=== PATIENT | female | born 1985 | race African-American/Black ===

== ENCOUNTER 2017-07-23 20:32 | Day surgery (SDC) | payer OTHER ==
--- NOTE | 2017-07-23 20:48 | PDOC.LDHP ---
Labor and Delivery H&P Chief complaint: abdominal pain HPI: 31 y/o at 32w4d, patient of Dr. Medrano, presents via EMS with abdominal pain. Describes the pain as sharp from umbilicus shooting down to vagina starting after she was walking. Was constant but now is more come and go. Denies VB, LOF, or decreased FM. ROS neg for HEENT, cv, pulm, gi, gu, neuro, psych, skin, musculoskeletal or constitutional symptoms other than mentioned above. OB History Details: 2 prior term SVDs, 4 SAB Current complications: gestational diabetes, other (anemia) Past Medical History: fibroids GDM Current medications: pre- vitamins, other (glyburide 2.5mg) Previous surgical history: none Allergies/Adverse Reactions: Allergies Allergy/AdvReac Type Severity Reaction Status Date / Time guaifenesin [From Robitussin] Allergy Hives Verified 07/23/17 20:48 Social history: none - Physical Exam Vital signs reviewed and normal: yes General: NAD, resting Lungs: nonlabored breathing Abdomen: gravid Extremeties: no edema FHT: category 1 (140s, mod variability, + accels, no decels) [place] contractions every: none - Vaginal Exam cm dilated: 0 Effacement: 0% Station: -3 - Assessment 31 y/o at 32w4d with musculoskeletal discomforts of . status reassuring with reactive NST. - Plan -: D/c home with precautions. Comfort measures discussed. Advised to keep all appointments. Next appointment .
[2017-07-23 20:57] VITALS: BP 122/75; TEMP 98.6; BMI 43.0
== END 2017-07-23 22:05 | disposition home or self-care (01) ==
LOC: L&D/OP 20:32
PROVIDERS: ATTEND Obstetrics & Gynecology
DX: O99.89 Other specified diseases and conditions complicating pregnancy, childbirth and the puerperium (principal); R10.9 Unspecified abdominal pain; Z88.8 Allergy status to other drugs, medicaments and biological substances; Z79.84 Long term (current) use of oral hypoglycemic drugs; Z79.899 Other long term (current) drug therapy; Z86.32 Personal history of gestational diabetes; Z87.891 Personal history of nicotine dependence; Z3A.32 32 weeks gestation of pregnancy

== ENCOUNTER 2017-08-14 11:00 | Day surgery (SDC) | payer OTHER ==
[2017-08-14 11:30] VITALS: BMI 43.0
[2017-08-14 12:13] LABS: Bilirubin Negative (Negative); Blood, Urine Negative (Negative); Glucose, Urine (Dipstick) Negative (Negative); Ketone, Urine Negative (Negative); Nitrite Negative (Negative); Protein, Urine (Dipstick) Trace mg/dL (Neg-Trace)
[2017-08-14 12:17] LABS: Bacteria/HPF None Seen HPF (None Seen); Hyaline Casts/LPF 4-6 HYALINE CAST LPF (0-3 Hyaline); RBC/HPF 0-3 HPF (0-3); WBC/HPF 0-3 HPF (0-3)
[2017-08-14 12:39] LABS: #Eosinphils 0.1 thou/uL (0.0-0.7); #Lymphocytes 2.1 thou/uL (1.20-3.40); #Monocytes 0.5 thou/uL (0.11-0.59); %Basophils 0.7 % (0.0-1.0); %Lymphocytes 36.4 % (21.0-51.0); Hematocrit 31.3 % (36.0-47.0); Mean Platelet Volume 7.9 fL (7.4-10.4); Red Blood Cell (RBC) Count 3.62 mill/uL (4.20-5.40); White Blood Cell (WBC) Count 5.7 thou/uL (4.8-10.8)
[2017-08-14 12:59] LABS: ALT (SGPT) 9 U/L (8-55); AST (SGOT) 12 U/L (5-34); Alkaline Phosphatase 74 U/L (40-150); Anion Gap 16 mmol/L (10-20); BUN (Urea Nitrogen) 8 mg/dL (7.0-18.7); Bilirubin, Total 0.3 mg/dL (0.2-1.2); Calc. Creatinine Clearance 215 mL/min (70-130); Calcium 8.7 mg/dL (7.8-10.44); Carbon Dioxide 16 mmol/L (22-29); Chloride 106 mmol/L (98-107); Estimated GFR-MDRD Greater than 90; Protein, Total 7.2 g/dL (6.0-8.3)
--- NOTE | 2017-08-14 13:59 | PRG ---
DATE OF SERVICE: 08/14/2017 PRESENTING COMPLAINT: Lower abdominal pain. HISTORY OF PRESENT ILLNESS: Ms. Dasilva is a 32-year-old 2, para 1 with EDC of 09/20 at 35 weeks gestation, who presents complaining of lower abdominal pain, back pain, and dysuria. She sena es rupture of membranes. She denies vulvar lesions. She reports an active fetus. She denies heada gene or blurred vision. RETURN TO FACTORY CLERK HISTORY: The patient sees Dr. Medrano and has had a previous x1. Had early enrollment in to care at 18 weeks gestation. Patient has gestational diabetes. She is under good control on her glyburide and a positive PHYSICAL THERAPIST TECHNICIAN-3 for Trichomonas in early . PAST MEDICAL HISTORY: None. PAST SURGICAL HISTORY: Denies. ALLERGIES: Denies. MEDICATIONS: Glyburide and vitamins. SOCIAL HISTORY: Denies tobacco, alcohol, or drug use. FAMILY HISTORY AND REVIEW OF SYSTEMS: Noncontributory. OB LABS: Include blood type O positive, antibody negative, Pap negative, rubella immune, VDRL nonre active, hepatitis B, GC chlamydia negative. PHYSICAL EXAMINATION: GENERAL: White female in no acute distress. VITAL SIGNS: Temperature 98.6, respirations 18, blood pressure 118/72. HEENT: Within normal limits. LUNGS: Clear to auscultation bilaterally. HEART: Regular rhythm. ABDOMEN: Soft and nontender. Fundal height 35 cm. FHTs 140s. No palpable contractions. PELVIC: Vulva without lesions. Vagina without discharge. Cervix closed, long, and high, anterior cephalic blots with ease. EXTREMITIES: Without clubbing, cyanosis or edema, 1+ DTRs. LABORATORY STUDIES: Patient's lab reveals a white count of 5.7, hematocrit of 31%. Base mets is wi thin normal limits including glucose of 104, normal creatinine and a cath UA, which was negative for any evidence of blood, nitrites, leukocyte esterase, white blood cells or red blood cells. IMPRESSION: Discomforts of at 35 weeks. No evidence of labor, urinary tract infe ction. PLAN: Discharge home, keep scheduled follow up in 3 days at [facility] [place] with Dr. Denice ruiz.
== END 2017-08-14 13:25 | disposition home or self-care (01) ==
LOC: L&D/OP 11:00
PROVIDERS: ATTEND Obstetrics & Gynecology
DX: O99.89 Other specified diseases and conditions complicating pregnancy, childbirth and the puerperium (principal); R10.30 Lower abdominal pain, unspecified; M54.9 Dorsalgia, unspecified; O23.43 Unspecified infection of urinary tract in pregnancy, third trimester; O24.415 Gestational diabetes mellitus in pregnancy, controlled by oral hypoglycemic drugs; Z88.8 Allergy status to other drugs, medicaments and biological substances; Z79.84 Long term (current) use of oral hypoglycemic drugs; Z79.899 Other long term (current) drug therapy; Z3A.35 35 weeks gestation of pregnancy; Z87.891 Personal history of nicotine dependence
CPT/HCPCS: 36415; 80053; 81001; 85025; A4353

== ENCOUNTER 2017-08-28 06:48 | Day surgery (SDC) | payer OTHER ==
[2017-08-28 10:19] LABS: Bilirubin Negative (Negative); Blood, Urine Negative (Negative); Glucose, Urine (Dipstick) Negative (Negative); Ketone, Urine Negative (Negative); Nitrite Negative (Negative); Protein, Urine (Dipstick) Negative (Neg-Trace)
[2017-08-28 10:21] LABS: Bacteria/HPF Rare-Few HPF (None Seen); Hyaline Casts/LPF 0-3 HYALINE CAST LPF (0-3 Hyaline); WBC/HPF 0-3 HPF (0-3)
[2017-08-28 10:32] LABS: RBC/HPF None Seen HPF (0-3)
[2017-08-28] MEDS ORDERED: Acetaminophen 500 MG TAB PO SCH (11:00)
== END 2017-08-28 10:50 | disposition home or self-care (01) ==
LOC: L&D/OP 06:48
PROVIDERS: ATTEND Obstetrics & Gynecology
DX: O47.9 False labor, unspecified (principal); Z88.8 Allergy status to other drugs, medicaments and biological substances; Z3A.00 Weeks of gestation of pregnancy not specified; Z87.891 Personal history of nicotine dependence
CPT/HCPCS: 36416; 81001; 87480; 87510; 87660

== ENCOUNTER 2017-08-31 11:02 | Inpatient (IN) | payer OTHER ==
[2017-08-31] MEDS ORDERED: Ondansetron HCl/PF 4 MG/2 ML Vial IVP PRN (11:21)
[2017-08-31] MEDS ORDERED: LR / Pitocin 40 units/1000 ml 1,000 ML IV PRN ×2 (11:21→11:22)
[2017-08-31] MEDS ORDERED: Promethazine HCl 25 MG/ML VIAL IM PRN (11:21)
[2017-08-31] MEDS ORDERED: Lidocaine 1% (PF) 30 ML VIAL SC PRN ×2 (11:21→11:22)
[2017-08-31] MEDS ORDERED: Misoprostol 200 MCG TAB PR PRN (11:22)
[2017-08-31] MEDS ORDERED: HYDROcodone/Acetaminophen 5/325 mg Tablet PO PRN (11:22)
[2017-08-31] MEDS ORDERED: Ibuprofen 800 MG TAB PO PRN (11:22)
[2017-08-31] MEDS: Lactated Ringer's 1,000 ML IV SCH ×2 (11:55→16:48)
[2017-08-31 12:13] LABS: Mean Platelet Volume 9.1 fL (7.4-10.4); Red Blood Cell (RBC) Count 3.58 mill/uL (4.20-5.40); White Blood Cell (WBC) Count 6.4 thou/uL (4.8-10.8)
[2017-08-31 12:25] VITALS: BMI 46.5
[2017-08-31] MEDS: Misoprostol 100 MCG TAB VAG SCH ×2 (12:41→16:08)
[2017-08-31 13:12] LABS: ALT (SGPT) 12 U/L (8-55); AST (SGOT) 18 U/L (5-34); Alkaline Phosphatase 86 U/L (40-150); Anion Gap 13 mmol/L (10-20); BUN (Urea Nitrogen) 8 mg/dL (7.0-18.7); Bilirubin, Total 0.3 mg/dL (0.2-1.2); Calc. Creatinine Clearance 217 mL/min (70-130); Calcium 8.2 mg/dL (7.8-10.44); Carbon Dioxide 17 mmol/L (22-29); Chloride 110 mmol/L (98-107); Estimated GFR-MDRD Greater than 90; Globulin 3.3 g/dL (2.4-3.5); Protein, Total 6.3 g/dL (6.0-8.3)
[2017-08-31] MEDS ORDERED: Acetaminophen 500 MG TAB PO SCH (21:00)
[2017-08-31] MEDS: LR 500 ML/Oxytocin 10 units 500 ML IV SCH (23:15)
[2017-08-31] MEDS ORDERED: LR 500 ML/Oxytocin 10 units 500 ML IV SCH (23:15)
[2017-09-01] MEDS: Lactated Ringer's 1,000 ML IV SCH ×3 (02:00→10:43)
[2017-09-01] MEDS: Misoprostol 100 MCG TAB VAG SCH ×4 (06:12→18:45)
[2017-09-01] MEDS: LR 500 ML/Oxytocin 10 units 500 ML IV SCH (06:21)
[2017-09-01] MEDS ORDERED: Fentanyl 4 mcg/Marc 0.1% Cadd 100 ML ONE (08:05)
[2017-09-01] MEDS ORDERED: Bicitra 30 ML UDCUP ONE (12:17)
[2017-09-01] MEDS ORDERED: CEFAZOLIN/Water 2 GM/20 ML SYRINGE ONE (12:17)
[2017-09-01] MEDS ORDERED: diphenhydrAMINE 50 MG/ML VIAL IVP PRN ×2 (12:26→13:01)
[2017-09-01] MEDS ORDERED: Ondansetron HCl/PF 4 MG/2 ML Vial IVP PRN ×3 (12:26→13:01)
[2017-09-01] MEDS ORDERED: Eucerin (Mineral Oil/Petrolatum,White) 30 gm Jar TOP PRN ×2 (12:26→13:01)
[2017-09-01] MEDS ORDERED: ePHEDrine/0.9% NaCl/PF SYRINGE 50 mg/10 ml SLOW IVP PRN (12:26)
[2017-09-01] MEDS ORDERED: Promethazine HCl 25 MG/ML VIAL IM PRN ×2 (12:26→13:01)
[2017-09-01] MEDS ORDERED: Acetaminophen 325 MG TAB PO PRN (12:26)
[2017-09-01] MEDS ORDERED: Naloxone HCl 0.4 mg/ml Vial IVP PRN ×4 (12:26→13:01)
[2017-09-01] MEDS ORDERED: Lactated Ringer's 500 ML IV PRN (12:26)
[2017-09-01] MEDS ORDERED: Bupivacaine 0.5% 10 ML VIAL ONE ×2 (12:28→12:29)
[2017-09-01] MEDS ORDERED: Communication Order-Pharmacy FS SCH ×2 (12:30→13:15)
[2017-09-01] MEDS ORDERED: Fentanyl 4mcg/Marcaine 0.1% Cassette 100 ML EPIDURAL SCH (12:30)
[2017-09-01] MEDS ORDERED: Morphine PF 1 MG/ML SYR ONE (12:37)
[2017-09-01] MEDS ORDERED: Oxytocin 10 UNITS/ML VIAL ONE ×2 (12:37→13:24)
[2017-09-01] MEDS ORDERED: diphenhydrAMINE 25 MG CAP PO PRN (12:40)
[2017-09-01] MEDS ORDERED: Adacel (T-DAP) 0.5 ML VIAL IM ONE (12:40)
[2017-09-01] MEDS ORDERED: Bisacodyl 10 MG SUPP PR PRN (12:40)
[2017-09-01] MEDS ORDERED: LR w/ Pitocin 40 units/1000 ML BAG IV SCH (12:45)
[2017-09-01] MEDS ORDERED: Lactated Ringer's 1,000 ML IV SCH (12:45)
[2017-09-01] MEDS ORDERED: Misoprostol 200 MCG TAB PR SCH (13:00)
[2017-09-01] MEDS ORDERED: Promethazine HCl 25 MG SUPP PR PRN (13:01)
[2017-09-01] MEDS ORDERED: HYDROmorphone 2 MG/ML VIAL SLOW IVP PRN (13:01)
[2017-09-01] MEDS ORDERED: Meperidine HCl/PF 25 MG/ML VIAL SLOW IVP PRN (13:01)
[2017-09-01] MEDS ORDERED: Ketorolac Tromethamine 30 MG/ML VIAL IVP PRN (13:01)
[2017-09-01] MEDS ORDERED: Naloxone HCl 0.4 mg/ml Vial IV PRN (13:01)
[2017-09-01] MEDS ORDERED: Ketorolac Tromethamine 30 MG/ML VIAL IVP SCH (13:15)
--- NOTE | 2017-09-01 13:31 | PDOC.OPDEL ---
OB Operative/Delivery Note Delivery Dr/Surgeon: Marcela Assist: Selvin Pre-Delivery Diagnosis: arrest of dilation, medically indicated induction Procedure/Post Delivery Dx: primary low transverse CS Weeks gestation: 38 Anesthesia: epidural - Findings A Sex: male Weight: 8 lb 5 oz - 1 min: 2 - 5 min: 9 - Additional Findings/Plan Placenta delivered: manual removal findings: low transverse hysterotomy without extension Estimated blood loss: 700ml Post delivery plan: routine recovery
[2017-09-01] MEDS ORDERED: Ketorolac Tromethamine 30 MG/ML VIAL ONE (14:39)
[2017-09-01] MEDS: Ibuprofen 800 MG TAB PO SCH ×2 (16:26→23:14)
--- NOTE | 2017-09-01 17:10 | ADD-OP ---
DATE OF SERVICE: 09/01/2017 ADDENDUM: I was present and scrubbed to assist the uncomplicated primary with Dr. Dawna Medrano. Pl ease see her note for full details.
[2017-09-01] MEDS ORDERED: MORPHINE 10 MG/ML SYRINGE SLOW IVP SCH (18:15)
[2017-09-01] MEDS ORDERED: Bupivacaine 0.25% HCL 30 ML VIAL ONE (19:17)
[2017-09-01] MEDS: Ferrous Sulfate 325 MG TAB PO SCH (23:15)
[2017-09-02 06:01] LABS: Hematocrit 28.9 % (36.0-47.0); Mean Platelet Volume 8.7 fL (7.4-10.4); Red Blood Cell (RBC) Count 3.29 mill/uL (4.20-5.40); White Blood Cell (WBC) Count 8.5 thou/uL (4.8-10.8)
[2017-09-02] MEDS: Ibuprofen 800 MG TAB PO SCH ×4 (07:06→21:41)
--- NOTE | 2017-09-02 07:48 | PDOC.PP ---
Post Progress Note Post Day #: 1 Subjective: Doing well without complaints this morning. PO intake tolerated: yes Flatus: yes Ambulation: yes Vital Signs (12 hours) Temp Pulse Resp BP Pulse Ox 09/02/17 04:45 97.9 F 66 20 137/81 100 09/02/17 00:29 98.3 F 64 20 132/82 97 Weight Weight 271 lb - Physical Examination General: NAD Respiratory: non-labored breathing Abdominal: lochia, no distention, appropriately TTP Fundus firm & at: U-3 Extremities: negative homans (B) Skin: CS incision dry & intact, no rash Neurological: no gross focal deficits Psychiatric: A&Ox3, normal affect Result Diagrams: 09/02/17 05:41 08/31/17 11:55 Additional Labs: Post Labs Hep Bs Antigen Non-Reactive S/CO (NonReactive) 08/31/17 11:55 (1) delivery due to previous obstetrical trauma, delivered, current hospitalization Code(s): O99.89 - OTH DISEASES AND CONDITIONS COMPL PREG/CHLDBRTH; O82 - ENCOUNTER FOR DELIVERY WITHOUT INDICATION Status: Acute (2) Failure to progress in first stage of labor Code(s): WWB4749 - Status: Acute - Assessment/Plan Continue routine postop care. Farzaneh d/c'd this morning. Encouraged ambulation. Possible d/c tomorrow.
[2017-09-02] MEDS: Prenatal Vitamin 1 TAB PO SCH (08:05)
[2017-09-02] MEDS: Ferrous Sulfate 325 MG TAB PO SCH ×2 (08:06→21:41)
[2017-09-02] MEDS: HYDROcodone/Acetaminophen 5/325 mg Tablet PO PRN ×3 (08:07→20:29)
[2017-09-02] MEDS: Simethicone Chewable 80 MG TAB PO PRN (08:07)
--- NOTE | 2017-09-02 23:38 | OP ---
DATE OF SURGERY: 09/01/2017 PREOPERATIVE DIAGNOSES: 1. A 32-year-old white female G5, P1 at 37-38 weeks with A2 gestational diabetes. 2. Mild gestational hypertension. 3. Failure to progress and descend in labor. POSTOPERATIVE DIAGNOSES: 1. A 32-year-old white female G5, P1 at 37-38 weeks with A2, gestational diabetes. 2. Mild gestational hypertension. 3. Failure to progress and descend in labor. PROCEDURE PERFORMED: Primary low transverse section without extension. SURGEON: Dawna Medrano M.D. ALLERGY AND IMMUNOLOGY CHIEF: Kelly Montalvo M.D. ANESTHESIA: Epidural. ESTIMATED BLOOD LOSS: 700 mL COMPLICATIONS: None. COUNTS: Correct x2. ANTIBIOTICS: 2 grams of Ancef tool honing machine set up operator to the OR. FINDINGS: 1. Male , vertex presentation, clear amniotic fluid, Apgars 2 and 9, weight 8 pounds 5 o unces, OP presentation noted. 2. Normal-appearing fallopian tubes, uterus, and ovaries. DISPOSITION: To the recovery room stable. DESCRIPTION OF OPERATIVE PROCEDURE: The patient previously received informed consent in regard to e surgery. She was taken back to the operating room, where she received an adequate dosing of her ep idural anesthesia. She was prepped and draped in usual sterile fashion. Pfannenstiel incision was m ashli in the abdomen and was carried down the fascia. The fascia was nicked in midline. Fascial incis ion was extended bilaterally. The rectus fascia was then dissected superiorly and inferiorly off the rectus muscle bellies. The peritoneal cavity was entered and an extra large Shun O retractor was placed. A 2 cm hysterotomy incision was then made in the lower uterine segment above the vesicouteri ne peritoneal fold. The baby was delivered in a vertex presentation. Mouth and nares were bulb suct ioned on the abdomen. The cord was doubly clamped and cut and handed to the showroom sales assistant, Dr. Haseeb barry who was in attendance. The usual cord blood was obtained and the placenta was manually extracted. The uterus was curetted of any remaining placental fragments with a dry laparotomy sponge. The hyst erotomy incision was closed in running locking fashion with #1 Monocryl suture. Hemostasis was confi rmed. Hysterotomy incision was noted to be hemostatic and the retractor was removed. Again, the pel vis was inspected and hemostasis was confirmed. The rectus fascia was then closed in running continu ous fashion with 0 PDS suture x2. Subcutaneous tissue was irrigated and noted to be hemostatic. A 3 -0 plain gut was placed for approximation of subcu tissue and then 4-0 subcuticular skin closure was carried out along with Dermabond. The surgery was terminated and no anesthetic or surgical complicat ions.
[2017-09-03] MEDS: HYDROcodone/Acetaminophen 5/325 mg Tablet PO PRN ×4 (04:11→19:34)
[2017-09-03] MEDS: Ibuprofen 800 MG TAB PO SCH ×3 (06:13→21:31)
--- NOTE | 2017-09-03 06:48 | PDOC.PP ---
Post Progress Note Post Day #: 2 Subjective: Doing well. pain controlled. Has had BMs already, ambulating. Robert po. PO intake tolerated: yes Flatus: yes Ambulation: yes Vital Signs (12 hours) Temp Pulse Resp BP 09/03/17 04:11 97.7 F 61 20 152/80 H 09/03/17 01:05 98.4 F 67 20 142/81 H 09/02/17 20:20 98.2 F 71 20 164/85 H Weight Weight 271 lb - Physical Examination General: NAD Abdominal: appropriately TTP Deviation from normal: incision sutured closed Extremities: negative homans (B) Skin: CS incision dry & intact Neurological: no gross focal deficits Psychiatric: A&Ox3 Result Diagrams: 09/02/17 05:41 08/31/17 11:55 Additional Labs: Post Labs Hep Bs Antigen Non-Reactive S/CO (NonReactive) 08/31/17 11:55 (1) Obesity Code(s): E66.9 - OBESITY, UNSPECIFIED Status: Acute Qualifiers: Body mass index: BMI 45.0-49.9 (2) delivery due to previous obstetrical trauma, delivered, current hospitalization Code(s): O99.89 - OTH DISEASES AND CONDITIONS COMPL PREG/CHLDBRTH; O82 - ENCOUNTER FOR DELIVERY WITHOUT INDICATION Status: Acute (3) Hypertension Code(s): I10 - ESSENTIAL (PRIMARY) HYPERTENSION Status: Acute Comment: (PIH) - Assessment/Plan Postop day 2: 1. Postop- continue postop care. Ambulate. Hct 28 2. BMI- continue wound checks. No evidence infection at this time 3. BPs- elevated BPs noted (not severe), continue to follow. 4. Disposition: probable dsch home POD 3 if able 5. Hx A2 GDM- follow up. FBS was 71 yesterday AM
[2017-09-03] MEDS: Prenatal Vitamin 1 TAB PO SCH (08:54)
[2017-09-03] MEDS: Ferrous Sulfate 325 MG TAB PO SCH ×2 (08:54→21:31)
[2017-09-03] MEDS: Simethicone Chewable 80 MG TAB PO PRN (19:33)
[2017-09-04] MEDS: HYDROcodone/Acetaminophen 5/325 mg Tablet PO PRN (05:53)
[2017-09-04] MEDS: Ibuprofen 800 MG TAB PO SCH (05:53)
--- NOTE | 2017-09-04 07:41 | PDOC.PP ---
Post Progress Note Post Day #: 3 PO intake tolerated: yes Flatus: yes Ambulation: yes Vital Signs (12 hours) Temp Pulse Resp BP 09/03/17 20:00 99 F 70 16 135/70 Weight Weight 271 lb - Physical Examination General: NAD Cardiovascular: no m/r/g, RRR Respiratory: clear to auscultation bilaterally, non-labored breathing Abdominal: + bowel sounds, lochia, no distention, appropriately TTP Result Diagrams: 09/02/17 05:41 08/31/17 11:55 Additional Labs: Post Labs Hep Bs Antigen Non-Reactive S/CO (NonReactive) 08/31/17 11:55 - Assessment/Plan post op day 3 primary c/s doing well. D/C today f/u 6 weeks
[2017-09-04] MEDS: Ferrous Sulfate 325 MG TAB PO SCH (09:33)
[2017-09-04] MEDS: Prenatal Vitamin 1 TAB PO SCH (09:33)
[2017-09-04 11:30] VITALS: BP 132/68; TEMP 98.7
== END 2017-09-04 13:20 | disposition home or self-care (01) | DRG 765 ==
LOC: L&D 11:02 → 3SW 09-01 16:13
PROVIDERS: ADMIT Obstetrics & Gynecology; ATTEND Obstetrics & Gynecology
PROC: 10D00Z1 Extraction of Products of Conception, Low, Open Approach (ICD-10-PCS; principal; 2017-09-01)
PROC: 10907ZC Drainage of Amniotic Fluid, Therapeutic from Products of Conception, Via Natural or Artificial Opening (ICD-10-PCS; 2017-09-01)
PROC: 3E0P3VZ Introduction of Hormone into Female Reproductive, Percutaneous Approach (ICD-10-PCS; 2017-09-01)
DX: O24.425 Gestational diabetes mellitus in childbirth, controlled by oral hypoglycemic drugs (principal); Z68.42 Body mass index [BMI] 45.0-49.9, adult; O99.214 Obesity complicating childbirth; Z37.0 Single live birth; Z3A.38 38 weeks gestation of pregnancy; O13.4 Gestational [pregnancy-induced] hypertension without significant proteinuria, complicating childbirth; O13.5 Gestational [pregnancy-induced] hypertension without significant proteinuria, complicating the puerperium; Z72.0 Tobacco use; O62.1 Secondary uterine inertia; O62.0 Primary inadequate contractions; O99.89 Other specified diseases and conditions complicating pregnancy, childbirth and the puerperium
CPT/HCPCS: 36415; 36416; 80053; 85027; 86780; 87340; 90715; J0595; J1885; J2270; J2274; J2590; J3490; J7120; S0020

== ENCOUNTER 2018-06-18 08:27 | Emergency (ER) | payer OTHER ==
[2018-06-18 09:23] LABS: #Eosinphils 0.1 thou/uL (0.0-0.7); #Lymphocytes 1.9 thou/uL (1.20-3.40); #Monocytes 0.3 thou/uL (0.11-0.59); #Neutrophils 2.7 thou/uL (1.40-6.50); %Basophils 0.4 % (0.0-1.0); %Eosinophils 1.6 % (0.0-10.0); %Lymphocytes 38.7 % (21.0-51.0); %Neutrophils 53.3 % (42.0-75.0); Hemoglobin 4.8 g/dL (12.0-16.0); Mean Corpuscular HGB CONC 30.5 g/dL (32.0-36.0); Mean Corpuscular Volume 72.1 fL (78.0-98.0); Mean Platelet Volume 8.2 fL (7.4-10.4); Platelet Count 435 thou/uL (130-400); RBC Distribution Width 17.9 % (11.5-14.5); Red Blood Cell (RBC) Count 2.18 mill/uL (4.20-5.40); Reflex for Review?? YES
[2018-06-18 09:40] LABS: ALT (SGPT) Less than 7 U/L (8-55); AST (SGOT) 9 U/L (5-34); Alkaline Phosphatase 54 U/L (40-150); Anion Gap 14 mmol/L (10-20); BUN (Urea Nitrogen) 9 mg/dL (7.0-18.7); Bilirubin, Total 0.2 mg/dL (0.2-1.2); Calc. Creatinine Clearance 0 mL/min (70-130); Carbon Dioxide 20 mmol/L (22-29); Chloride 106 mmol/L (98-107); Estimated GFR-MDRD Greater than 90; Globulin 3.6 g/dL (2.4-3.5); Glucose 153 mg/dL (70-105); Lipase 25 U/L (8-78); Potassium 3.8 mmol/L (3.5-5.1); Protein, Total 7.6 g/dL (6.0-8.3); Sodium 136 mmol/L (136-145)
[2018-06-18 09:47] LABS: Polychromasia SLIGHT = 2-3 cells (100X) (0-2/hpf)
[2018-06-18 09:48] LABS: Hypochromia MODERATE=16-30 cells (100X) (0-5/hpf); Microcytosis MODERATE=15-30 cells (100X) (0-5/hpf)
[2018-06-18 09:49] LABS: PLT Morphology Comment Appears Increased
--- NOTE | 2018-06-18 09:50 | CT ---
HEAD CT WITHOUT CONTRAST: Date: 06/18/18 HISTORY: Syncope. COMPARISON: 05/19/15. FINDINGS: No parenchymal hemorrhage. No extra-axial hematoma. No midline shift. Basilar cisterns are patent. Br ain volume, age-appropriate. Cortical baker-white matter differentiation preserved. Ventricles and sul ci are patent and symmetric. Calvarium is intact. Adequate aeration of the sinuses and mastoid air ce lls. High-riding right jugular bulb is noted. No evidence of jugular dehiscence. IMPRESSION: No acute intracranial process. POS: [facility]
[2018-06-18 14:54] LABS: Bilirubin Negative (Negative); Blood, Urine Large (Negative); Clarity CLOUDY (Clear); Glucose, Urine (Dipstick) 100 mg/dL (Negative); Leukocyte Moderate (Negative); Nitrite Positive (Negative); Protein, Urine (Dipstick) > or equal to 300 mg/dL (Neg-Trace); Specific Gravity, Urine 1.039 (1.002-1.036)
[2018-06-18 14:55] LABS: Bacteria/HPF Rare-Few HPF (None Seen); Hyaline Casts/LPF 7-10 HYALINE CAST LPF (0-3 Hyaline); Pregnancy Test - Urine (BHCG) Negative (Negative); Pregu Control Background? CLEAR/WHITE (CLR/WHITE); Pregu Control Bar Appear? YES (CONTROL BAR); RBC/HPF GREATER THAN 50-TNTC HPF (0-3); Specific Gravity 1.039 (1.002-1.036); Squamous Epithelial None Seen HPF (0-3)
[2018-06-18 16:07] LABS: #Eosinphils 0.1 thou/uL (0.0-0.7); #Lymphocytes 2.5 thou/uL (1.20-3.40); #Monocytes 0.4 thou/uL (0.11-0.59); #Neutrophils 3.2 thou/uL (1.40-6.50); %Basophils 0.1 % (0.0-1.0); %Lymphocytes 40.3 % (21.0-51.0); %Monocytes 6.5 % (0.0-10.0); %Neutrophils 52.1 % (42.0-75.0); Hemoglobin 6.3 g/dL (12.0-16.0); Mean Corpuscular HGB CONC 32.2 g/dL (32.0-36.0); Mean Corpuscular Hemoglobin 24.5 pg (27.0-31.0); Platelet Count 310 thou/uL (130-400); RBC Distribution Width 17.7 % (11.5-14.5); Red Blood Cell (RBC) Count 2.56 mill/uL (4.20-5.40); White Blood Cell (WBC) Count 6.1 thou/uL (4.8-10.8)
[2018-06-18] MEDS ORDERED: cefTRIAXone\\ROCEPHIN 1 GM VIAL ONE (16:42)
--- NOTE | 2018-06-18 18:41 | ULT ---
PELVIC ULTRASOUND: HISTORY: Vaginal bleeding and pain. TECHNIQUE: Multiple longitudinal and transverse images of the pelvis obtained using Multi-Hertz curvilinear freeman sabdominal as well as Multi-Hertz endovaginal transducers. FINDINGS: Real-time, color-flow, and spectral wave-form Doppler analysis demonstrates the uterus to be somewhat enlarged, measuring 10.9 x 5.7 x 6.1 cm. There is an area of heterogeneous density along the chef german ior uterine wall, measuring 2.4 x 2.3 x 2.6 cm. This may represent a uterine fibroid. The endometri um is thickened, measuring 1.8 cm. A Nabothian cyst is also present. Both ovaries are visualized with good blood flow seen in the right ovary. Definitive flow in the lef t ovary is not visualized. The right ovary measures 4.5 x 2.4 x 2.4 cm, while the left ovary measures 2.6 x 4.7 x 2.9 cm. A small amount of free pelvic fluid is seen. A moderate sized cyst is seen in the right ovary, measuring 2.5 x 1.7 x 2.1 cm. Follow-up images to resolution recommended. IMPRESSION: 1. Right ovarian cyst or cystic lesion. 2. Uterine body complex lesion, most compatible with a fibroid. 3. Definitive flow not seen in the left ovary. POS: [facility]
--- NOTE | 2018-06-19 05:46 | CON ---
DATE OF CONSULTATION: 06/18/2018 CONSULTING PROVIDER: Jessica Cisneros PA-C. CHIEF COMPLAINT: Vaginal bleeding. HISTORY OF PRESENT ILLNESS: This is a 32-year-old para 2, who presented to the emergency department for syncopal episode. The patient reports that she has had very irregular cycles for the last 3 months and they have been really heavy with passage of clots and soaking pads in less than an hour. She reports her current period started about 3 days ago she has been passing large clots and soaking pads in 20 minutes. Her last period prior to this one was 2 weeks ago. She reports dizziness, nausea, vomiting, and syncopal episodes. She denies any fevers, chills or other concerns. She delivered her last baby in delivered in September. She has received 2 units of blood in the emergency department. PAST MEDICAL HISTORY: Anemia. PAST SURGICAL HISTORY: x2. MEDICATIONS: Iron irregularly. ALLERGIES: GUAIFENESIN. SOCIAL HISTORY: Positive for tobacco use of approximately 5 cigarettes per day. Negative for alcohol use. She does admit to marijuana use. FAMILY HISTORY: Negative for breast, ovary, uterine, or colon cancer. Significant only for hypertension and diabetes. PHYSICAL EXAMINATION: VITAL SIGNS: Afebrile with normal vital signs. GENERAL: Awake, alert, in no acute distress. CHEST: Nonlabored breathing. ABDOMEN: Soft, obese, nontender to palpation. PELVIC: Normal-appearing external female genitalia. BUS normal. Vaginal mucosa pink, moist, well rugated. Cervix appears multiparous with no lesions or abnormalities. There is a small amount of blood in the vault, but no active bleeding from the cervical os. LABORATORY DATA: Hemoglobin on arrival was 4.8, hematocrit was 15.7, post- transfusion was 6.3 and 19.4 respectively. Chemistry unremarkable except for a glucose of 153. Urine, bloody, positive for nitrites, leukoesterase and 100 of glucose. test, negative. IMAGING: Pelvic ultrasound was performed revealing a right ovarian cyst measuring 2.5 cm in the largest diameter. The uterus was mildly enlarged measuring 10.9 x 5.7 x 6.1 cm. On the posterior uterine wall, there is a 2.4 x 2.3 x 2.6 cm fibroid. Endometrial lining measured 1.[address] was unremarkable. ASSESSMENT AND PLAN: A 32-year-old, para 2 with abnormal uterine bleeding and a thickened endometrial stripe. She had symptomatic anemia and is now status post transfusion of 2 units of red blood cells. I recommended transfusing 1 more unit since her hemoglobin is still 6.3, and she is still mildly bleeding. However, since she does not appear to be heavily bleeding at this time, she can follow up on an outpatient basis with Dr. Medrano, who is her community health nurse supervisor. She will be placed on Provera 10 mg daily until she is able to be seen. She is to call Dr. Medrano's office tomorrow for a followup. The patient is feeling much better since transfusion of her 2 units of red blood cells, but agrees to 1 more unit prior to discharge home. RAHUL
--- NOTE | 2018-06-23 12:23 | EKG ---
Test Reason : Blood Pressure : / mmHG Vent. Rate : 094 BPM Atrial Rate : 094 BPM P-R Int : 146 ms QRS Dur : 074 ms QT Int : 362 ms P-R-T Axes : 059 040 006 degrees QTc Int : 452 ms Normal sinus rhythm Normal ECG Confirmed by BROCK FABIAN ([id number]), news copy editor CATRINA ALSTON ([id number]) on 06/23/2018 12:23:02 PM Referred By: Confirmed By:BROCK FABIAN
== END 2018-06-18 21:50 | disposition home or self-care (01) ==
LOC: ERS 08:27
DX: D64.9 Anemia, unspecified (principal); N93.8 Other specified abnormal uterine and vaginal bleeding; N39.0 Urinary tract infection, site not specified; Z87.891 Personal history of nicotine dependence; F43.10 Post-traumatic stress disorder, unspecified; F32.9 Major depressive disorder, single episode, unspecified; Z79.899 Other long term (current) drug therapy
CPT/HCPCS: 36415; 36430; 51701; 70450; 76856; 80053; 81003; 81015; 81025; 83690; 85025; 85060; 86850; 86900; 86901; 93005; 96365; 96366; A4353; J0696; P9016

== ENCOUNTER 2018-11-30 18:21 | Emergency (ER) | payer OTHER, SELFPAY ==
[2018-11-30 19:18] LABS: Mean Corpuscular HGB CONC 29.3 g/dL (32.0-36.0); Mean Corpuscular Hemoglobin 18.5 pg (27.0-31.0); Mean Corpuscular Volume 63.1 fL (78.0-98.0); Mean Platelet Volume 11.3 fL (7.4-10.4); Platelet Count 510 thou/uL (130-400); RBC Distribution Width 20.4 % (11.5-14.5); White Blood Cell (WBC) Count 8.4 thou/uL (4.8-10.8)
[2018-11-30 19:36] LABS: ALT (SGPT) 8 U/L (8-55); AST (SGOT) 10 U/L (5-34); Alkaline Phosphatase 62 U/L (40-150); Anion Gap 13 mmol/L (10-20); BUN (Urea Nitrogen) 5 mg/dL (7.0-18.7); Bilirubin, Total Less than 0.2 mg/dL (0.2-1.2); CK (CPK) 131 U/L (29-168); Calc. Creatinine Clearance 0 mL/min (70-130); Calcium 9.2 mg/dL (7.8-10.44); Carbon Dioxide 22 mmol/L (22-29); Chloride 105 mmol/L (98-107); Estimated GFR-MDRD Greater than 90; Globulin 3.5 g/dL (2.4-3.5); Glucose 111 mg/dL (70-105); Potassium 4.2 mmol/L (3.5-5.1); Protein, Total 7.5 g/dL (6.0-8.3); Sodium 136 mmol/L (136-145)
[2018-11-30 19:42] LABS: #Basophils 0.1 thou/uL (0.0-0.2); #Eosinphils 0.2 thou/uL (0.0-0.7); #Lymphocytes 3.8 thou/uL (1.20-3.40); #Monocytes 0.7 thou/uL (0.11-0.59); #Neutrophils 3.7 thou/uL (1.40-6.50); %Basophils 0.7 % (0.0-1.0); %Eosinophils 2.9 % (0.0-10.0); %Lymphocytes 44.6 % (21.0-51.0); %Monocytes 8.1 % (0.0-10.0); %Neutrophils 43.7 % (42.0-75.0); Anisocytosis SLIGHT = 6-15 cells (100X) (0-5/hpf); Hypochromia SLIGHT = 6-15 cells (100X) (0-5/hpf); Lymphocytes 38 % (21-51); MDiff Complete? YES; Microcytosis SLIGHT = 6-15 cells (100X) (0-5/hpf); Monocytes 9 % (0-10); Neutrophil 53 % (42-75); Platelet Morphology Comment Appears Increased; Reflex for Review?? YES; Target Cells SLIGHT = 2-5 cells (100X) (0-1/hpf)
--- NOTE | 2018-11-30 19:54 | RAD ---
TWO VIEWS CHEST 11/30/18 HISTORY: Chest pain. PA and lateral views of the chest obtained on 11/30/18. Comparison made to previous exam from 04/18/06. Two views chest demonstrate mild cardiomegaly. No evidence of effusions, pneumonia or pneumothorax se en. IMPRESSION: Unremarkable two views chest. POS: [facility]
[2018-11-30] MEDS ORDERED: Ketorolac Tromethamine 60 MG/2 ML VIAL ONE (20:34)
[2018-11-30 21:39] LABS: Bilirubin Negative (Negative); Blood, Urine Negative (Negative); Clarity CLEAR (Clear); Glucose, Urine (Dipstick) Negative (Negative); Leukocyte Negative (Negative); Nitrite Negative (Negative); Protein, Urine (Dipstick) 30 mg/dL (Neg-Trace); Specific Gravity, Urine 1.027 (1.002-1.036); Urobilinogen 0.2 mg/dL (0.2-1.0); pH, Urine 5.5 (5.0-9.0)
[2018-11-30 21:40] LABS: Bacteria/HPF None Seen HPF (None Seen); Pathc Cast-AUWi Flag 2.32 (0-2.49); WBC/HPF 0-3 HPF (0-3)
[2018-11-30 21:41] LABS: Pregnancy Test - Urine (BHCG) Negative (Negative); Pregu Control Background? CLEAR/WHITE (CLR/WHITE); Pregu Control Bar Appear? YES (CONTROL BAR); Specific Gravity 1.027 (1.002-1.036)
[2018-11-30 21:48] LABS: Hyaline Casts/LPF 0-3 HYALINE CAST LPF (0-3 Hyaline)
== END 2018-11-30 22:12 | disposition home or self-care (01) ==
LOC: ERS 18:21
DX: K02.9 Dental caries, unspecified (principal); L03.211 Cellulitis of face; R11.2 Nausea with vomiting, unspecified; D50.0 Iron deficiency anemia secondary to blood loss (chronic); F43.10 Post-traumatic stress disorder, unspecified; F32.9 Major depressive disorder, single episode, unspecified; F17.210 Nicotine dependence, cigarettes, uncomplicated
CPT/HCPCS: 36415; 71046; 80053; 81003; 81015; 81025; 82550; 83690; 84484; 85025; 85060; 93005; 96372; J1885

== ENCOUNTER 2019-06-14 17:10 | Emergency (ER) | payer MEDICAID, SELFPAY ==
[2019-06-14] MEDS ORDERED: Ketorolac Tromethamine 60 MG/2 ML VIAL ONE (18:17)
[2019-06-14] MEDS ORDERED: Lidocaine Viscous Sol 2% 15 ml UD Cup ONE (18:17)
[2019-06-14] MEDS ORDERED: HYDROcodone/Acetaminophen 5/325 mg Tablet ONE (19:22)
== END 2019-06-14 19:27 | disposition home or self-care (01) ==
LOC: ERS 17:10
DX: K04.7 Periapical abscess without sinus (principal); L03.211 Cellulitis of face; D50.9 Iron deficiency anemia, unspecified; F32.9 Major depressive disorder, single episode, unspecified; F17.210 Nicotine dependence, cigarettes, uncomplicated; Z79.899 Other long term (current) drug therapy
CPT/HCPCS: 41800; 96372; J1885

== ENCOUNTER 2019-09-11 14:13 | Emergency (ER) | payer MEDICAID, SELFPAY ==
[2019-09-11 14:50] LABS: #Basophils 0.1 thou/uL (0.0-0.2); #Eosinphils 0.1 thou/uL (0.0-0.7); #Lymphocytes 2.1 thou/uL (1.20-3.40); #Monocytes 0.4 thou/uL (0.11-0.59); %Basophils 1.2 % (0.0-1.0); %Eosinophils 2.7 % (0.0-10.0); %Lymphocytes 44.7 % (21.0-51.0); %Neutrophils 42.4 % (42.0-75.0); Hemoglobin 8.4 g/dL (12.0-16.0); Mean Corpuscular HGB CONC 30.3 g/dL (32.0-36.0); Mean Corpuscular Hemoglobin 20.3 pg (27.0-31.0); Mean Corpuscular Volume 67.2 fL (78.0-98.0); Mean Platelet Volume 11.8 fL (7.4-10.4); Platelet Count 362 thou/uL (130-400); Red Blood Cell (RBC) Count 4.13 mill/uL (4.20-5.40); White Blood Cell (WBC) Count 4.8 thou/uL (4.8-10.8)
[2019-09-11 15:10] LABS: ALT (SGPT) Less than 7 U/L (8-55); AST (SGOT) 9 U/L (5-34); Alkaline Phosphatase 49 U/L (40-110); Anion Gap 11 mmol/L (10-20); BUN (Urea Nitrogen) 6 mg/dL (7.0-18.7); Bilirubin, Total 0.2 mg/dL (0.2-1.2); Calc. Creatinine Clearance 0 mL/min (70-130); Calcium 8.8 mg/dL (7.8-10.44); Carbon Dioxide 23 mmol/L (22-29); Chloride 106 mmol/L (98-107); Estimated GFR-MDRD Greater than 90; Globulin 3.6 g/dL (2.4-3.5); Glucose 104 mg/dL (70-105); Protein, Total 7.6 g/dL (6.0-8.3); Sodium 136 mmol/L (136-145)
[2019-09-11 15:35] LABS: Hypochromia MODERATE=16-30 cells (100X) (0-5/hpf); MDiff Complete? YES; Microcytosis MODERATE=15-30 cells (100X) (0-5/hpf); Ovalocytes SLIGHT = 2-5 cells (100X) (0-1/hpf); Platelet Morphology Comment Appears Adequate; Polychromasia SLIGHT = 2-3 cells (100X) (0-2/hpf); Reflex for Review?? NO; Schistocytes SLIGHT = 2-5 cells (100X) (0-1/hpf); Target Cells SLIGHT = 2-5 cells (100X) (0-1/hpf); Tear Drops SLIGHT = 2-5 cells (100X) (0-1/hpf)
[2019-09-11 16:50] LABS: BHCG - Serum POSITIVE (NEGATIVE); Pregs Control Background? CLEAR/WHITE (CLR/WHITE); Pregs Control Bar Appear? YES (CONTROL BAR)
[2019-09-11 18:54] LABS: Bilirubin Negative (Negative); Blood, Urine Negative (Negative); Clarity Clear (Clear); Glucose, Urine (Dipstick) Normal (Negative); Leukocyte Negative Leu/uL (Negative); Nitrite Negative (Negative); Protein, Urine (Dipstick) Negative (Neg-Trace); Urobilinogen Normal mg/dL (Less than 2)
--- NOTE | 2019-09-11 19:31 | ULT ---
EXAM: US Pelvic Transvaginal W Doppler PROVIDED CLINICAL HISTORY: Nausea and vomiting, pelvic pain COMPARISON: None FINDINGS: Uterus measures about 10 x 5.9 x 7.3 cm and demonstrates several circumscribed foci of altered echoge nicity within the uterine myometrium compatible with fibroids. The largest of these measures about 2.7 cm. Endometrial thickening is noted, measuring approximately 17 mm. There is no evidence for an i ntrauterine gestational sac. The right ovary measures about 3.2 x 2.7 x 1.5 cm and appears sonographically unremarkable. The left ovary measures about 3.4 x 3.2 x 1.9 cm and demonstrates a complex focus of altered echogeni city measuring about 1.9 cm presumably reflecting a hemorrhagic physiologic cyst. There is mild free fluid present within the pelvic cul-de-sac, appearing simple and possibly physiolo gic in nature. Color Doppler and spectral analysis of the ovarian waveforms demonstrates ovarian flow bilaterally. IMPRESSION: 1. 1.9 cm focus within the left ovary presumably reflecting a hemorrhagic physiologic cyst. 2. No evidence for an intrauterine gestational sac.
== END 2019-09-11 19:45 | disposition home or self-care (01) ==
LOC: ERS 14:13 → EEVIPCON 14:13 → ERS 19:45
DX: O99.89 Other specified diseases and conditions complicating pregnancy, childbirth and the puerperium (principal); F17.210 Nicotine dependence, cigarettes, uncomplicated; O99.019 Anemia complicating pregnancy, unspecified trimester; O99.331 Smoking (tobacco) complicating pregnancy, first trimester; Z71.6 Tobacco abuse counseling; O99.341 Other mental disorders complicating pregnancy, first trimester; F43.10 Post-traumatic stress disorder, unspecified; F32.9 Major depressive disorder, single episode, unspecified
CPT/HCPCS: 36415; 76856; 80053; 81003; 84702; 84703; 85025; 93005; 99406

== ENCOUNTER 2019-09-28 11:22 | Emergency (ER) | payer SELFPAY | END 2019-09-28 12:50 | disposition home or self-care (01) | LOC: ERS 11:22 | DX: J10.1 Influenza due to other identified influenza virus with other respiratory manifestations (principal); D50.9 Iron deficiency anemia, unspecified; F43.10 Post-traumatic stress disorder, unspecified; F32.9 Major depressive disorder, single episode, unspecified; F17.210 Nicotine dependence, cigarettes, uncomplicated | CPT/HCPCS: 87804; 99283 ==

== ENCOUNTER 2019-10-11 12:47 | Emergency (ER) | payer SELFPAY ==
[2019-10-11] MEDS ORDERED: Clindamycin 150 MG CAP ONE (13:27)
== END 2019-10-11 13:32 | disposition home or self-care (01) ==
LOC: ERS 12:47
DX: O99.611 Diseases of the digestive system complicating pregnancy, first trimester (principal); K04.7 Periapical abscess without sinus; O99.341 Other mental disorders complicating pregnancy, first trimester; F32.9 Major depressive disorder, single episode, unspecified; F43.10 Post-traumatic stress disorder, unspecified; Z87.891 Personal history of nicotine dependence; Z3A.12 12 weeks gestation of pregnancy
CPT/HCPCS: 99282

== ENCOUNTER 2020-03-24 14:09 | Emergency (ER) | payer OTHER, SELFPAY | END 2020-03-24 15:28 | disposition home or self-care (01) | LOC: ERS 14:09 | DX: K04.7 Periapical abscess without sinus (principal); D50.9 Iron deficiency anemia, unspecified; K03.81 Cracked tooth; Z79.899 Other long term (current) drug therapy | CPT/HCPCS: 41800 ==

== ENCOUNTER → 2020-04-16 | Day surgery (SDC) | payer OTHER ==
[~2020-04-16] MED LIST: Lidocaine 1% (PF) 30 ML VIAL ONE; cefTRIAXone\\ROCEPHIN 1 GM VIAL IM SCH; hydrALAZINE 20 MG/ML VIAL SLOW IVP PRN
[2020-04-16 09:34] VITALS: BP 129/72; TEMP 98.4; BMI 41.2
[2020-04-16 09:40] LABS: Bacteria/HPF None Seen HPF (None Seen); Bilirubin Negative (Negative); Blood, Urine 3+ (Negative); Clarity Turbid (Clear); Glucose, Urine (Dipstick) Normal (Negative); Ketone, Urine Negative (Negative); Leukocyte 500 Leu/uL (Negative); Nitrite Negative (Negative); Protein, Urine (Dipstick) 20 mg/dL (Neg-Trace); RBC/HPF Greater than 50 HPF (0-3); Specific Gravity, Urine 1.015 (1.002-1.036); Squamous Epithelial 0-3 HPF (0-3); Urobilinogen Normal mg/dL (Less than 2); WBC/HPF Greater than 50 HPF (0-3); Yeast-Budding 2+ HPF (None Seen); pH, Urine 6.5 (5.0-9.0)
[2020-04-16 09:52] LABS: Urine Culture Reflex Yes Yes
--- NOTE | 2020-04-16 10:42 | PRG ---
DATE OF SERVICE: 04/16/2020 TIME OF SERVICE: 10 o'clock. PRESENTING COMPLAINT: Urinary frequency and dysuria at 35 weeks. HISTORY OF PRESENT ILLNESS: Ms. Dasilva is a 34-year-old, 9, para 2, AB 6, who sees Dr. Hand at [facility]. She has a due date of 05/16, placing her at 35 weeks. She complains of several hours of dysuria and urinary frequency. She denies fever or chills. She reports mild lower back pain. 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 PAST MEDICAL HISTORY: Denies. PAST SURGICAL HISTORY: Denies. ALLERGIES: ROBITUSSIN. MEDICATIONS: vitamins. SOCIAL HISTORY: Denies tobacco, alcohol, or IV drug use. FAMILY HISTORY: Noncontributory. REVIEW OF SYSTEMS: Noncontributory. PHYSICAL EXAMINATION: GENERAL: White female, in no acute distress. VITAL SIGNS: Temperature 98.8, pulse 85, and respirations 18. HEENT: Within normal limits. LUNGS: Clear to auscultation bilaterally. HEART: Regular rate and rhythm. MUSCULOSKELETAL: She has no CVA tenderness on exam, but does complain of mild back pain. ABDOMEN: Soft and nontender without palpable contractions. Bladder is tender. FHTs are 140s. VAGINAL: Deferred. EXTREMITIES: Without clubbing, cyanosis, or edema. LABORATORY STUDIES: monitoring is carried out, which revealed a category 1 heart rate tracing. No evidence of labor. Urinalysis was carried out, which revealed turbid urine, 3+ blood, greater than 50 rbc's and wbc's per high-powered field, 500+ leukocyte esterase, and was reflexed for culture. IMPRESSION: No evidence of labor. PLAN: 1. Rocephin 1 g IM x1. 2. Macrodantin 100 p.o. b.i.d. x7 days. 3. Follow up urine culture with Dr. Hand. 4. ER precautions. Job ID: [id number]
== END ==
LOC: L&D/OP 08:53
PROVIDERS: ATTEND Family Medicine
DX: O99.89 Other specified diseases and conditions complicating pregnancy, childbirth and the puerperium (principal); R35.0 Frequency of micturition; R30.0 Dysuria; O24.410 Gestational diabetes mellitus in pregnancy, diet controlled; O34.219 Maternal care for unspecified type scar from previous cesarean delivery; O09.293 Supervision of pregnancy with other poor reproductive or obstetric history, third trimester; Z3A.35 35 weeks gestation of pregnancy
CPT/HCPCS: 81001; 87086; 96372; 99282; J0696; J2001

== ENCOUNTER → 2020-05-08 | Outpatient (CLI) | payer OTHER ==
[2020-05-08 17:35] LABS: SARS-CoV-2 MS2 Positive; SARS-CoV-2 N Gene Negative; SARS-CoV-2 S Gene Negative; SARS-CoV-2 by NAA Not Detected (NotDetected); SARS-CoV-2 orf1ab Negative
== END ==
LOC: LABBT 08:00
PROVIDERS: ATTEND Family Medicine
DX: Z20.828 Contact with and (suspected) exposure to other viral communicable diseases (principal)
CPT/HCPCS: 87635; U0003

== ENCOUNTER 2020-12-27 16:21 | Emergency (ER) | payer OTHER ==
[2020-12-27 16:45] LABS: Bacteria/HPF 3+ HPF (None Seen); Bilirubin Negative (Negative); Blood, Urine 2+ (Negative); Clarity Turbid (Clear); Glucose, Urine (Dipstick) Normal (Negative); Ketone, Urine Negative (Negative); Leukocyte 500 Leu/uL (Negative); Nitrite 1+ (Negative); Protein, Urine (Dipstick) 30 mg/dL (Neg-Trace); RBC/HPF 21-50 HPF (0-3); Specific Gravity, Urine 1.008 (1.002-1.036); Squamous Epithelial 0-3 HPF (0-3); Urobilinogen Normal mg/dL (Less than 2); WBC/HPF Greater than 50 HPF (0-3); pH, Urine 6.5 (5.0-9.0)
[2020-12-27 17:10] LABS: #Lymphocytes 2.6 thou/uL (1.20-3.40); #Monocytes 0.7 thou/uL (0.11-0.59); #Neutrophils 6.3 thou/uL (1.40-6.50); %Basophils 0.3 % (0.0-1.0); %Eosinophils 0.5 % (0.0-10.0); %Lymphocytes 26.8 % (21.0-51.0); %Monocytes 7.1 % (0.0-10.0); %Neutrophils 65.3 % (42.0-75.0); Hemoglobin 10.2 g/dL (12.0-16.0); Mean Corpuscular HGB CONC 33.8 g/dL (32.0-36.0); Mean Corpuscular Hemoglobin 26.5 pg (27.0-31.0); Mean Corpuscular Volume 78.6 fL (78.0-98.0); Mean Platelet Volume 9.6 fL (7.4-10.4); Platelet Count 297 thou/uL (130-400); Red Blood Cell (RBC) Count 3.85 mill/uL (4.20-5.40); White Blood Cell (WBC) Count 9.7 thou/uL (4.8-10.8)
[2020-12-27 17:29] LABS: ALT (SGPT) Less than 7 U/L (8-55); AST (SGOT) 7 U/L (5-34); Albumin 3.6 g/dL (3.5-5.0); Alkaline Phosphatase 54 U/L (40-110); Anion Gap 15 mmol/L (10-20); BUN (Urea Nitrogen) 5 mg/dL (7.0-18.7); Bilirubin, Total 0.2 mg/dL (0.2-1.2); Calc. Creatinine Clearance 0 mL/min (70-130); Calcium 9.5 mg/dL (7.8-10.44); Carbon Dioxide 20 mmol/L (22-29); Chloride 105 mmol/L (98-107); Glucose 97 mg/dL (70-105); Lipase 9 U/L (8-78); Potassium 3.9 mmol/L (3.5-5.1); Protein, Total 7.6 g/dL (6.0-8.3); Sodium 136 mmol/L (136-145)
[2020-12-27 17:32] LABS: BHCG - Serum POSITIVE (NEGATIVE); Pregs Control Background? CLEAR/WHITE (CLR/WHITE); Pregs Control Bar Appear? YES (CONTROL BAR)
== END 2020-12-27 19:44 | disposition home or self-care (01) ==
LOC: ERS 16:21
DX: O23.42 Unspecified infection of urinary tract in pregnancy, second trimester (principal); O24.112 Pre-existing type 2 diabetes mellitus, in pregnancy, second trimester; O99.012 Anemia complicating pregnancy, second trimester; O99.332 Smoking (tobacco) complicating pregnancy, second trimester; F17.210 Nicotine dependence, cigarettes, uncomplicated; Z3A.18 18 weeks gestation of pregnancy; Z79.899 Other long term (current) drug therapy
CPT/HCPCS: 36415; 76815; 80053; 81003; 81015; 83690; 84702; 84703; 85025; 86900; 86901

== ENCOUNTER 2022-12-05 18:20 | Emergency (ER) | payer OTHER ==
[2022-12-05] MEDS ORDERED: hydrALAZINE 20 MG/ML VIAL ONE (20:07)
[2022-12-05 20:19] LABS: #Lymphocytes 2.4 thou/uL (1.20-3.40); #Monocytes 0.5 thou/uL (0.11-0.59); #Neutrophils 3.3 thou/uL (1.40-6.50); %Basophils 0.7 % (0.0-1.0); %Eosinophils 0.6 % (0.0-10.0); %Lymphocytes 38.8 % (21.0-51.0); %Monocytes 7.4 % (0.0-10.0); %Neutrophils 52.5 % (42.0-75.0); Hemoglobin 11.1 g/dL (12.0-16.0); Mean Corpuscular HGB CONC 33.1 g/dL (32.0-36.0); Mean Corpuscular Volume 78.5 fl (78.0-98.0); Mean Platelet Volume 10.3 fL (7.4-10.4); Platelet Count 257 10x3/uL (130-400); RBC Distribution Width 15.4 % (11.5-14.5); Red Blood Cell (RBC) Count 4.27 mill/uL (4.20-5.40); White Blood Cell (WBC) Count 6.3 10x3/uL (4.8-10.8)
[2022-12-05 20:30] LABS: Fetal Membranes Rupture No Membranes Rupture (No Rupture)
[2022-12-05 20:31] LABS: Fetal Memb Rubt Inter Cntrl QC ACCEPTABLE (ACCEPTABLE)
[2022-12-05 20:35] LABS: ALT (SGPT) 7 U/L (8-55); AST (SGOT) 9 U/L (5-34); Albumin 3.4 g/dL (3.5-5.0); Alkaline Phosphatase 100 U/L (40-110); Anion Gap 16 mmol/L (10-20); BUN (Urea Nitrogen) 7 mg/dL (7.0-18.7); Bilirubin, Total 0.4 mg/dL (0.2-1.2); Calc. Creatinine Clearance 0 mL/min (70-130); Carbon Dioxide 14 mmol/L (22-29); Chloride 103 mmol/L (98-107); Estimated GFR 94; Globulin 4.6 g/dL (2.4-3.5); Glucose 272 mg/dL (70-105); Potassium 4.3 mmol/L (3.5-5.1); Sodium 129 mmol/L (136-145)
== END 2022-12-05 20:28 | disposition short-term general hospital (02) ==
LOC: ERS 18:20
DX: O13.2 Gestational [pregnancy-induced] hypertension without significant proteinuria, second trimester (principal); F17.210 Nicotine dependence, cigarettes, uncomplicated; Z3A.00 Weeks of gestation of pregnancy not specified
CPT/HCPCS: 80053; 84112; 85025; 93005; 96374; J0360